=== PATIENT | male | born 1995 | race African-American/Black ===

== ENCOUNTER 2022-03-22 07:30 | Emergency (ER) | payer MEDICAID ==
[~2022-03-22] VITALS: Ht 160 cm; Wt 65.8 kg
[2022-03-22] MEDS ORDERED: IBUPROFEN 400 MG TABLET PO ONE (08:00)
[2022-03-22] MEDS ORDERED: IBUPROFEN 400 MG TABLET ONE (08:03)
--- NOTE | 2022-03-22 08:10 | NUR ---
MOTRIN PO GIVEN INDICATED, BALDEMAR WELL
--- NOTE | 2022-03-22 08:20 | NUR ---
PIECE GOODS CLERK AT BEDSIDE FOR XRAY
--- NOTE | 2022-03-22 09:03 | NUR ---
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
[2022-03-22 09:04] VITALS: BP 124/67
--- NOTE | 2022-03-22 09:16 | NUR ---
Patient discharged to home in stable condition. Written and verbal after care instructions given. Patient verbalizes understanding of instruction.
== END 2022-03-22 09:17 | disposition home or self-care (01) ==
LOC: ER 07:30
DX: M25.562 Pain in left knee (principal)
CPT/HCPCS: 73564-TC